=== PATIENT | male | born 1990 | race Native Hawaiian/Other Pacific Islander ===

== ENCOUNTER 2017-03-24 09:00 | Emergency (ER) | payer BC ==
[~2017-03-24] VITALS: Ht 175.3 cm; Wt 92.5 kg
[2017-03-24 09:11] VITALS: Ht 175.3 cm; Wt 92.5 kg
[2017-03-24 09:51] VITALS: BP 144/91
== END 2017-03-24 09:51 | disposition home or self-care (01) ==
LOC: ED 09:00
DX: R05 Cough (principal); R09.81 Nasal congestion